=== PATIENT | male | born 1945 ===

== ENCOUNTER 2017-06-02 16:39 | Emergency (ER) | payer MEDICARE, MEDICAID ==
[2017-06-02 16:39] VITALS: BMI 32.2
[2017-06-02 16:50] VITALS: PULSE 63; RESP 16; TEMP 98.2; O2SAT 98
[2017-06-02 18:15] LABS: BASO # 0.1 K/uL (0.0-0.2); EOS # 0.1 K/uL (0.0-0.7); EOS % 0.9 % (0.0-4.0); HEMOGLOBIN 13.8 g/dL (12.0-18.0); LYMPH # 4.7 K/uL (1.0-4.3); LYMPH % 41.6 % (20.0-40.0); MEAN CELL VOLUME 88.5 fl (80.0-94.0); MEAN CORPUSCULAR HEMOGLOBIN 29.1 pg (27.0-31.0); MEAN CORPUSCULAR HGB CONC 32.9 g/dL (33.0-37.0); MEAN PLATELET VOLUME 8.4 fl (7.2-11.7); MONO # 0.9 K/uL (0.0-0.8); MONO % 8.4 % (0.0-10.0); NEUT # 5.4 K/uL (1.8-7.0); NEUT % 48.1 % (50.0-75.0); RBC 4.75 Mil/uL (4.40-5.90); RED CELL DISTRIBUTION WIDTH 13.3 % (11.5-14.5); WHITE BLOOD COUNT 11.3 K/uL (4.8-10.8)
--- NOTE | 2017-06-02 18:27 | ED PDOC ---
HPI: General Adult Time Seen by Provider: 06/02/17 16:57 Chief Complaint (Nursing): High Blood Pressure Chief Complaint (Provider): Cough and Shortness of Breath History Per: Patient History/Exam Limitations: no limitations Onset/Duration Of Symptoms: Days (x2 weeks) Current Symptoms Are (Timing): Still Present Additional Complaint(s): 72 year old male with a past medical history of HTN, high cholesterol and thyroid disease, who presents to the ED complaining of cough and shortness of breath x2 weeks. Reports his cough is intermittently productive of sputum and sometimes dry. Denies hemoptysis, rhinorrhea, or sore throat. Patient states he came in today due to chest pain and headache. Reports he has been non-compliant recently with blood pressure medication due to insurance issues. States he attempted to see his PMD, Dr. Carcamo today, but was unable to due to a lapse in his insurance. Denies leg swelling, fever, chills, blurry vision, or any urinary symptoms. PMD: Dr. Carcamo Against Medical Advice - AMA Patient Left Against Medical Advice: The patient declines admission to the hospital and wishes to leave the Emergency Department. This action is against my medical advice. This decision was made with informed refusal. The patient was told that admission to the hospital is necessary. Explanation of the reasons why were discussed. The risks of leaving were explained to the patient and include, but are not limited to, worsening of known or currently unknown conditions, permanent disability and from undiagnosed or untreated conditions. The patient has the capacity to make this informed decision and understands my explanation of the current medical problem and risks of leaving. The patient voluntarily accepts these risks and signed an AMA form documenting our conversation. The patient was given the opportunity to ask questions and reconsider. The patient was encouraged to return to the Emergency Department at any time for further care. Past Medical History Reviewed: Historical Data, Nursing Documentation, Vital Signs Vital Signs: Last Vital Signs Temp 98.2 F 06/02/17 16:44 Pulse 63 06/02/17 16:44 Resp 16 06/02/17 16:44 BP 177/85 H 06/02/17 19:21 Pulse Ox 98 06/02/17 19:27 - Medical History PMH: HTN, Hypercholesterolemia, Hypothyroidism - Surgical History Surgical History: Appendectomy - Family History Family History: States: Hypertension - Social History Current smoker - smoking cessation education provided: No - Immunization History Hx Tetanus Toxoid Vaccination: No Hx Influenza Vaccination: No Hx Pneumococcal Vaccination: No - Home Medications Home Medications: Ambulatory Orders Medication Instructions Recorded Finasteride [Proscar] 5 mg PO DAILY #15 tab 06/02/17 Levothyroxine Sodium [Synthroid] 88 mcg PO DAILY #15 tablet 06/02/17 Lisinopril [Zestril] 40 mg PO DAILY #15 tab 06/02/17 Simvastatin 40 mg PO DAILY #15 tablet 06/02/17 - Allergies Allergies/Adverse Reactions: Allergies Allergy/AdvReac Type Severity Reaction Status Date / Time No Known Allergies Allergy Verified 05/16/17 16:08 Review of Systems ROS Statement: Except As Marked, All Systems Reviewed And Found Negative Constitutional: Negative for: Fever, Chills Eyes: Negative for: Vision Change ENT: Negative for: Nose Discharge, Throat Pain Cardiovascular: Positive for: Chest Pain Respiratory: Positive for: Cough (intermittently productive), Shortness of Breath, Sputum. Negative for: Hemoptysis Genitourinary Male: Negative for: Dysuria, Frequency, Incontinence Musculoskeletal: Negative for: Leg Pain Neurological: Positive for: Headache Physical Exam - Reviewed Nursing Documentation Reviewed: Yes Vital Signs Reviewed: Yes - Physical Exam Appears: Positive for: Uncomfortable, In Acute Distress Head Exam: Positive for: ATRAUMATIC, NORMOCEPHALIC Skin: Positive for: Warm, Dry Eye Exam: Positive for: EOMI, PERRL ENT: Negative for: Pharyngeal Erythema, Tonsillar Exudate Neck: Positive for: Painless ROM, Supple Cardiovascular/Chest: Positive for: Regular Rate, Rhythm, Chest Non Tender. Negative for: Murmur Respiratory: Positive for: Normal Breath Sounds. Negative for: Wheezing, Respiratory Distress Gastrointestinal/Abdominal: Positive for: Soft. Negative for: Tenderness, Distended, Guarding Back: Positive for: Normal Inspection. Negative for: Decreased ROM Extremity: Positive for: Normal ROM. Negative for: Deformity Lymphatic: Negative for: Adenopathy Neurologic/Psych: Positive for: Alert. Negative for: Motor/Sensory Deficits - Laboratory Results Result Diagrams: 06/02/17 18:00 06/02/17 18:00 - ECG ECG: Positive for: Interpreted By Me ECG Rhythm: Positive for: Normal QRS, Normal ST Segment, Sinus Bradycardia O2 Sat by Pulse Oximetry: 98 (RA) Pulse Ox Interpretation: Normal - Radiology X-Ray: Interpreted by Me X-Ray Interpretation: No Acute Disease Medical Decision Making Medical Decision Making: Time: 17:53 Initial Impression: Hypertension, cough, and chest pain. Differential diagnoses include, but are not limited to bronchitis, pneumonia, CHF, ACS Initial Plan: --CT Head w/o contrast --EKG --BNP --CMP --Lactic acid, plasma --Magnesium --Phosphorus --TSH --Troponin I --PTT --PT --Chest X-Ray 2 views --Blood culture --color television console monitor --IV insertion --Reevaluation Time: 18:27 CT Head Findings: HEMORRHAGE: No intracranial hemorrhage. BRAIN: No mass effect or edema. Dense intracranial atherosclerosis. The sanchez-white matter differentiation appears intact. Please note that MRI with diffusion imaging is more sensitive in the detection of acute ischemic event. VENTRICLES: No hydrocephalus. CALVARIUM: Unremarkable. PARANASAL SINUSES: Unremarkable as visualized. No significant inflammatory changes. MASTOID AIR CELLS: Unremarkable as visualized. No inflammatory changes. 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 IMPRESSION: No acute intracranial pathology identified. 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 Correlate with clinical history. Time: 19:20 Labs reviewed and found unremarkable. Chest X-Ray shows no acute findings. Patient will be hospitalized for chest pain and hypertension. Needs hospitalization for serial Troponin to rule out acute coronary syndrome. Scribe Attestation: Documented by Erich Mobley, acting as a scribe for Shayy Sarabia MD. Provider Scribe Attestation: All medical record entries made by the Scribe were at my direction and personally dictated by me. I have reviewed the chart and agree that the record accurately reflects my personal performance of the history, physical exam, medical decision making, and the department course for this patient. I have also personally directed, reviewed, and agree with the discharge instructions and disposition. Disposition - Clinical Impression Clinical Impression: Chest pain, Hypertension - Patient ED Disposition Is Patient to be Admitted: Yes Counseled Patient/Family Regarding: Studies Performed, Diagnosis - Disposition Referrals: [facility] [Outside] Disposition Time: 19:20 Condition: UNKNOWN Additional Instructions: REGRESA A LA [facility] A CONTINUAR AGUIAR EVALUACION Y TRATIMIENTE. Prescriptions: Finasteride [Proscar] 5 mg PO DAILY #15 tab Levothyroxine Sodium [Synthroid] 88 mcg PO DAILY #15 tablet Lisinopril [Zestril] 40 mg PO DAILY #15 tab Simvastatin 40 mg PO DAILY #15 tablet Instructions: Against Medical Advice (ED) Forms: [employer] (Romanian) Print Language: RUSSIAN - Pt Status Changed To: Hospital Disposition Of: Inpatient - Admit Certification Admit to Inpatient:: After my assessment, the patient will require hospitalization for at least two midnights. This is because of the severity of symptoms shown, intensity of services needed, and/or the medical risk in this patient being treated as an outpatient.
--- NOTE | 2017-06-02 18:29 | CT ---
PROCEDURE: CT HEAD WITHOUT CONTRAST. HISTORY: hypertension headache COMPARISON: None available. TECHNIQUE: Axial computed tomography images were obtained through the head/brain without intravenous contrast. Radiation dose: Total exam DLP = 782.40 mGy-cm. This CT exam was performed using one or more of the following dose reduction techniques: Automated exposure control, adjustment of the mA and/or kV according to patient size, and/or use of iterative reconstruction technique. FINDINGS: HEMORRHAGE: No intracranial hemorrhage. BRAIN: No mass effect or edema. Dense intracranial atherosclerosis. The sanchez-white matter differentiation appears intact. Please note that MRI with diffusion imaging is more sensitive in the detection of acute ischemic event. VENTRICLES: No hydrocephalus. CALVARIUM: Unremarkable. PARANASAL SINUSES: Unremarkable as visualized. No significant inflammatory changes. MASTOID AIR CELLS: Unremarkable as visualized. No inflammatory changes. 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 IMPRESSION: No acute intracranial pathology identified. 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 Correlate with clinical history.
[2017-06-02 18:36] LABS: B-TYPE NATRIURETIC PEPTIDE 111 pg/ml (0-900)
[2017-06-02 18:39] LABS: PROTHROMBIN TIME 11.2 Seconds (9.8-13.1)
[2017-06-02 18:40] LABS: PARTIAL THROMBOPLASTIN TIME 28.1 Seconds (25.6-37.1)
[2017-06-02 19:08] LABS: ALB/GLOB RATIO 1.2 (1.0-2.1); ALBUMIN 3.8 g/dL (3.5-5.0); ALT/SGPT 29 U/L (21-72); AST/SGOT 20 U/L (17-59); BLOOD UREA NITROGEN 20 mg/dl (9-20); GFR AFRICAN-AMERICAN > 60; GFR NON-AFRICAN AMERICAN > 60; MAGNESIUM 1.9 MG/DL (1.6-2.3)
[2017-06-02 19:22] VITALS: BP 177/85
[2017-06-02] MEDS ORDERED: Nitroglycerin 2% Ointment Foilpak UD TOP STA (19:23)
[2017-06-02] MEDS ORDERED: Nitroglycerin 2% Ointment Foilpak UD TOP ONE (19:27)
--- NOTE | 2017-06-03 09:06 | CARD ---
APPROVED REPORT EKG Measurement Heart [id number] DC 170P27 [id number] <Conclusion> Sinus bradycardia Otherwise normal ECG
--- NOTE | 2017-06-03 12:49 | RAD ---
HISTORY: chest pain COMPARISON: 10/30/2009. TECHNIQUE: Chest PA and lateral FINDINGS: LUNGS: No active pulmonary disease. PLEURA: No significant pleural effusion identified. No pneumothorax apparent. CARDIOVASCULAR: No radiographic findings to suggest acute or significant cardiovascular disease. OSSEOUS STRUCTURES: No significant abnormalities. VISUALIZED UPPER ABDOMEN: Normal. OTHER FINDINGS: None. IMPRESSION: No active disease. No significant interval change compared to the prior examination(s).
== END 2017-06-02 20:00 | disposition left against medical advice (07) ==
LOC: H.ER 16:39
DX: R07.89 Other chest pain (principal); I10 Essential (primary) hypertension; E03.9 Hypothyroidism, unspecified; E78.00 Pure hypercholesterolemia, unspecified

== ENCOUNTER 2017-09-24 17:12 | Emergency (ER) | payer MEDICARE, MEDICAID ==
[2017-09-24 17:12] VITALS: BMI 32.2
[2017-09-24 17:40] VITALS: BP 178/68; PULSE 73; RESP 20; TEMP 98; O2SAT 96
--- NOTE | 2017-09-24 18:08 | ED PDOC ---
HPI: CCC, URI, Sore Throat Time Seen by Provider: 09/24/17 17:45 Chief Complaint (Nursing): Cough, Cold, Congestion History Per: Patient History/Exam Limitations: no limitations Onset/Duration Of Symptoms: Days (x 2 - 3) Current Symptoms Are (Timing): Still Present Additional Complaint(s): 72-year-old male here with daughter complaining of non-productive cough for 2 weeks and b/l leg swelling for 3 days. Pt reports chest pain only when coughing. Reports subjective fever last night. Pt was given cough syrup by [facility] without relief. PMD: Carmita Cali Past Medical History Reviewed: Historical Data, Nursing Documentation, Vital Signs Vital Signs: Last Vital Signs Temp 98.0 F 09/24/17 17:38 Pulse 73 09/24/17 17:38 Resp 20 09/24/17 17:38 BP 178/68 H 09/24/17 17:38 Pulse Ox 96 09/24/17 23:57 - Medical History PMH: HTN, Hypercholesterolemia, Hypothyroidism - Surgical History Surgical History: Appendectomy - Family History Family History: States: Hypertension - Immunization History Hx Tetanus Toxoid Vaccination: No Hx Influenza Vaccination: No Hx Pneumococcal Vaccination: No - Home Medications Home Medications: Ambulatory Orders Medication Instructions Recorded Albuterol 0.083% [Albuterol 0.083% 3 ml IH Q6H PRN #30 neb 09/24/17 Inhal Linda (2.5 mg/3 ml) UD] Albuterol HFA [Ventolin HFA 90 2 puff IH [id number] PRN #1 bottle 09/24/17 mcg/actuation (8 g)] Aspirin [Ecotrin] 81 mg PO DAILY 09/24/17 Finasteride [Proscar] 5 mg PO HS 09/24/17 Levothyroxine [Synthroid] 88 mcg PO DAILY 09/24/17 Nebulizer [Compact Compressor 1 dev XX PRN PRN #1 dev 09/24/17 Nebulizer] Promethazine DM [Phenergan DM 5 ml PO Q6 PRN 09/24/17 Syrup] Promethazine/Codeine 5 ml PO Q8H PRN #1 udc 09/24/17 [Codeine/Promethazine 10 MG/5 Ml-6.25 MG/5 Ml] Rosuvastatin Calcium [Crestor] 20 mg PO HS 09/24/17 Valsartan/Hydrochlorothiazide 1 tab PO DAILY 09/24/17 [Diovan Hct 160-25 mg Tablet] amLODIPine [Norvasc] 10 mg PO DAILY 09/24/17 - Allergies Allergies/Adverse Reactions: Allergies Allergy/AdvReac Type Severity Reaction Status Date / Time No Known Allergies Allergy Verified 09/24/17 17:37 Review of Systems ROS Statement: Except As Marked, All Systems Reviewed And Found Negative Constitutional: Positive for: Fever (Subjective) Cardiovascular: Positive for: Chest Pain (when coughing) Respiratory: Positive for: Cough (non-productive cough) Musculoskeletal: Positive for: Other (bilateral leg swelling) Physical Exam - Reviewed Nursing Documentation Reviewed: Yes Vital Signs Reviewed: Yes - Physical Exam Appears: Positive for: Well (Speaking full sentences) Eye Exam: Positive for: Other (Right eye implant noted) Cardiovascular/Chest: Positive for: Regular Rate, Rhythm Respiratory: Positive for: Wheezing (bibasilar crackles) Pulses-Dorsalis Pedis (L): 3+/4+ (+3) Pulses-Dorsalis Pedis (R): 3+/4+ (+3) - Laboratory Results Result Diagrams: 09/24/17 20:26 09/24/17 20:46 - ECG O2 Sat by Pulse Oximetry: 96 (RA) Pulse Ox Interpretation: Normal - Progress Condition: Improved Medical Decision Making Medical Decision Making: Time: 17:99 Impression(s): Pneumonia, CHF Plan: - EKG - BNP - CMP - TSH - Troponin I - CBC - PTT - Prothrombin Time - CXR - Blood Culture - UA - Duplex Lower Extremity Vein Bilateral Ultrasound Time: 18:42 Duplex Lower Extremity Vein Bilateral Ultrasound FINDINGS: COMMON FEMORAL VEIN: Right CFV: Unremarkable. Left CFV: Unremarkable. SUPERFICIAL FEMORAL VEIN: Right SFV: Unremarkable. Left SFV: Unremarkable. POPLITEAL VEIN: Right Popliteal: Unremarkable. Left Popliteal: Unremarkable. POSTERIOR TIBIAL VEIN: Right PTV: Unremarkable. Left PTV: Unremarkable. OTHER FINDINGS: None. IMPRESSION: No evidence of deep venous thrombosis. Time: 18:12 - Peak Flow Pre/Post Treatment Pt states again chest pain only with cough, refusing antibiotic tratement. Scribe Attestation: Documented by Maurilio Gilbert, acting as a scribe for Jenny Dale MD Provider Scribe Attestation: All medical record entries made by the Scribe were at my direction and personally dictated by me. I have reviewed the chart and agree that the record accurately reflects my personal performance of the history, physical exam, medical decision making, and the department course for this patient. I have also personally directed, reviewed, and agree with the discharge instructions and disposition. Disposition - Clinical Impression Clinical Impression: Cough - Disposition Disposition: Routine/Home Disposition Time: 23:53 Condition: IMPROVED Prescriptions: Albuterol HFA [Ventolin HFA 90 mcg/actuation (8 g)] 2 puff IH [id number] PRN #1 bottle PRN Reason: Shortness Of Breath Albuterol 0.083% [Albuterol 0.083% Inhal Linda (2.5 mg/3 ml) UD] 3 ml IH Q6H PRN # 30 neb PRN Reason: Shortness Of Breath Nebulizer [Compact Compressor Nebulizer] 1 dev XX PRN PRN #1 dev PRN Reason: Shortness Of Breath Promethazine/Codeine [Codeine/Promethazine 10 MG/5 Ml-6.25 MG/5 Ml] 5 ml PO Q8H PRN #1 udc PRN Reason: Cough Instructions: Cough in Adults Forms: [employer] (Swedish) Print Language: LEBANESE
[2017-09-24] MEDS ORDERED: Albuterol-Ipratrop 3 mg / 0.5 (3 ml) UD INH STA (18:12)
--- NOTE | 2017-09-24 18:44 | US ---
PROCEDURE: Bilateral lower extremity venous duplex Doppler. HISTORY: BLE swelling COMPARISON: None available. TECHNIQUE: Bilateral common femoral, superficial femoral, popliteal and posterior tibial veins were evaluated. Flow was assessed with color Doppler, compressibility, assessment of phasic flow and augmentation response. FINDINGS: COMMON FEMORAL VEIN: Right CFV: Unremarkable. Left CFV: Unremarkable. SUPERFICIAL FEMORAL VEIN: Right SFV: Unremarkable. Left SFV: Unremarkable. POPLITEAL VEIN: Right Popliteal: Unremarkable. Left Popliteal: Unremarkable. POSTERIOR TIBIAL VEIN: Right PTV: Unremarkable. Left PTV: Unremarkable. OTHER FINDINGS: None. IMPRESSION: No evidence of deep venous thrombosis.
[2017-09-24] MEDS ORDERED: Albuterol-Ipratrop 3 mg / 0.5 (3 ml) UD ONE (19:05)
[2017-09-24 20:29] LABS: BASO # 0.1 K/uL (0.0-0.2); BASO % 1.2 % (0.0-2.0); EOS # 0.3 K/uL (0.0-0.7); EOS % 3.3 % (0.0-4.0); HEMOGLOBIN 13.9 g/dL (12.0-18.0); LYMPH # 4.6 K/uL (1.0-4.3); LYMPH % 54.8 % (20.0-40.0); MEAN CELL VOLUME 88.8 fl (80.0-94.0); MEAN CORPUSCULAR HEMOGLOBIN 29.9 pg (27.0-31.0); MEAN CORPUSCULAR HGB CONC 33.7 g/dL (33.0-37.0); MEAN PLATELET VOLUME 8.4 fl (7.2-11.7); MONO # 0.7 K/uL (0.0-0.8); MONO % 8.9 % (0.0-10.0); NEUT # 2.7 K/uL (1.8-7.0); NEUT % 31.8 % (50.0-75.0); RBC 4.63 Mil/uL (4.40-5.90); RED CELL DISTRIBUTION WIDTH 13.3 % (11.5-14.5); WHITE BLOOD COUNT 8.4 K/uL (4.8-10.8)
[2017-09-24 20:58] LABS: ALB/GLOB RATIO 1.2 (1.0-2.1); ALBUMIN 4.1 g/dL (3.5-5.0); ALT/SGPT 35 U/L (21-72); AST/SGOT 27 U/L (17-59); BLOOD UREA NITROGEN 20 mg/dl (9-20); CALCIUM 9.3 mg/dL (8.4-10.2); GFR AFRICAN-AMERICAN > 60; GFR NON-AFRICAN AMERICAN > 60
[2017-09-24 21:01] LABS: INR 0.9 (0.9-1.2); PARTIAL THROMBOPLASTIN TIME 33.3 Seconds (25.6-37.1); PROTHROMBIN TIME 10.3 Seconds (9.8-13.1)
[2017-09-24] MEDS ORDERED: Potassium Chloride 20 mEq ER Tab PO STA (22:25)
[2017-09-24] MEDS ORDERED: Potassium Chloride 20 mEq ER Tab PO ONE (22:37)
[2017-09-24 23:46] LABS: B-TYPE NATRIURETIC PEPTIDE 107 pg/ml (0-900)
--- NOTE | 2017-09-25 08:27 | RAD ---
HISTORY: COMPARISON: 06/02/2017. TECHNIQUE: Chest PA and lateral FINDINGS: LINES AND TUBES: None. LUNG AND PLEURA: The lungs are well inflated and clear. No pleural effusion or pneumothorax. HEART AND MEDIASTINUM: The heart is not enlarged. The hilar and mediastinal contours are within normal limits. SKELETAL STRUCTURES: The bony structures are within normal limits for the patient's age. VISUALIZED UPPER ABDOMEN: Normal. OTHER FINDINGS: None. IMPRESSION: No active pulmonary disease.
--- NOTE | 2017-09-25 10:55 | CARD ---
APPROVED REPORT EKG Measurement Heart [id number] NM 178P8 [id number] <Conclusion> Normal sinus rhythm Normal ECG
== END 2017-09-25 00:08 | disposition home or self-care (01) ==
LOC: H.ER 17:12
DX: R05 Cough (principal); R06.2 Wheezing; R07.89 Other chest pain; E03.9 Hypothyroidism, unspecified; E78.00 Pure hypercholesterolemia, unspecified; I11.0 Hypertensive heart disease with heart failure; I50.9 Heart failure, unspecified; Z79.82 Long term (current) use of aspirin